=== PATIENT | male | born 1950 | race Caucasian/White ===

== ENCOUNTER 2024-12-14 07:29 | Emergency (ER) | payer MEDICARE ==
[~2024-12-14] VITALS: Ht 175.3 cm; Wt 82.3 kg
[2024-12-14 07:40] VITALS: BP 137/70; TEMP 97.4; O2SAT 97
[2024-12-14] MEDS: diazePAM 5MG TABLET PO ONE (08:58)
[2024-12-14] MEDS: ACETAMINOPHEN 500 MG TAB PO ONE (08:58)
[2024-12-14] MEDS: KETOROLAC 30 MG/ML 1ML VIAL IM ONE (08:59)
[2024-12-14] MEDS: methylPREDNISolone 125MG 2ML VIAL IM ONE (10:27)
[2024-12-14] MEDS ORDERED: TIZA10TA PO (11:16)
[2024-12-14] MEDS ORDERED: MEDR4PAK PO (11:16)
== END 2024-12-14 11:28 | disposition home or self-care (01) ==
LOC: M ED 07:29
DX: M47.12 Other spondylosis with myelopathy, cervical region (principal); M54.2 Cervicalgia; N40.0 Benign prostatic hyperplasia without lower urinary tract symptoms; F17.200 Nicotine dependence, unspecified, uncomplicated; Z91.041 Radiographic dye allergy status; Z79.899 Other long term (current) drug therapy
CPT/HCPCS: 72040; 96372; 99283; J1885; J2919